=== PATIENT | female | born 1975 | race Caucasian/White ===

== ENCOUNTER 2024-04-16 10:47 | Outpatient (AMB) | payer MEDICARE, MEDICAID, SELFPAY ==
--- NOTE | 2024-04-16 10:51 | A.OFFVIS_ITS ---
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 Accompanied by: Self / Same As Patient Allergies amoxicillin [From Augmentin] Allergy (Unknown, Verified 04/16/24 11:06) Vomiting cariprazine [From Vraylar] Allergy (Unknown, Verified 04/16/24 11:06) Dizziness clavulanic acid [From Augmentin] Allergy (Unknown, Verified 04/16/24 11:06) Vomiting doxycycline Allergy (Unknown, Verified 04/16/24 11:06) Vomiting duloxetine Allergy (Unknown, Verified 04/16/24 11:06) suicidal ideation erythromycin base [From Ilotycin] Allergy (Unknown, Verified 04/16/24 11:06) Dizziness etodolac Allergy (Unknown, Verified 04/16/24 11:06) Headache Sulfa (Sulfonamide Antibiotics) Allergy (Unknown, Verified 04/16/24 11:06) TONGUE SWELLS sumatriptan [From Imitrex] Allergy (Unknown, Verified 04/16/24 11:06) neck pain tomato [Tomato] Allergy (Unknown, Verified 04/16/24 11:06) HIVES wheat Allergy (Unknown, Verified 04/16/24 11:06) CELIAC DISEASE HPI HPI Lumbar Spondylosis: Details: Patient is a 48 years old female past history of chronic neck and low back, lumbar degenerative disc disease, scoliosis, multiple joint pain, fibromyalgia, anxiety and depression, bipolar disorder, migraine headaches, presents today for initial evaluation of neck and back pain. Denies any recent trauma, injury, or falls. Patient was followed at [facility] and has completed physical and chiropractic therapy in September and received back injections in January with temporary pain relief that lasted about 1 month patient reports worsening pain after the injection and is hesitant towards interventional treatments. Patient reports back pain is the most troublesome pain generator. Back pain is axial without radiation into her lower extremities. Pain affects her daily activities and functioning, mobility, sleep, mood and social interactions. She does have chronic bilateral knee pain due to arthritis and was previously evaluated by Dr. Reinoso, Orthopedics in the past. Patient sees Dr. Velazquez for migraine headaches, treated with Tylenol #3 and topiramate. Denies any fever or chills, abdominal or groin pain, weakness, bladder or bowel dysfunction or saddle anesthesia. Patient is currently on permanent disability. She receives mental health therapy and counseling for Bipolar disorder, anxiety and depression. Patient drinks one cup of coffee and at times Dr. Pepper soda. Denies tobacco or alcohol use. Oswestry Low Back Disability Score=30 (severe disability) Location: Lower right back, widespread body pain, neck, bilateral knee pain Duration: Chronic pain for > 3 years Characteristics of symptom or complaint: Burning, aching, exhausting, spasming, aching, heavy Aggravating or associated factors: Walking, movement, sleeping, ADLs, home chores, cold/ice Relieving factors: Recliner, rest, Celebrex, Advil, gapapentin, Tylenol #3, heating pad Treatment: PT, chiropractic therapy, injection at [facility] Medical History (Updated 04/16/24 @ 21:56 by FRANK Logan) Lumbar spondylolysis Tinea pedis Bilateral knee pain Joint pain in both hands Fibromyalgia Hypertension Celiac disease Migraine Major depression, melancholic type Avulsion injury GERD (gastroesophageal reflux disease) Long-term current use of benzodiazepine Persistent insomnia Anxiety Bipolar 1 disorder Surgical History (Updated 04/16/24 @ 11:18 by FRANK Logan) H/O total hysterectomy (~2019) Review of Systems Const All systems reviewed & are unremarkable except as noted in HPI and below Physical Exam Vital Signs: Last Vital Signs Pulse 84 04/16/24 10:58 BP 141/85 H 04/16/24 10:58 Pulse Ox 98 04/16/24 10:58 Oxygen Delivery Method Room Air 04/16/24 10:58 BMI result Body Mass Index 44.8 General: Appears afebrile. No acute distress. Morbidly obese. Alert and oriented. Mood and affect appropriate. Follows and participates in conversation appropriately. Respiratory effort is unlabored. No cough. Able to transition from sit to stand unassisted. Ambulates with bilaterally normal heel strike and toe off. Neck Neck: Yes no lymphadenopathy, Yes supple, No anterior neck swelling, Yes no JVD and Yes prominent dorsocervical fat pad General: Yes no CVA tenderness Back/Spine/Pelvis Other: Patient is able to walk and stand on heels and tip toes with no difficulties demonstrating good motor tone. No limping. Can flex forward to 70-80 degrees and extend to 10-15 degrees before experiencing lumbar pain. Lumbar extension reproduces mild pain. Flexion is intact and reproduces moderate pain. Demonstrates 5/5 strength of quadriceps bilaterally as well as flexion/dorsiflexion of bilateral feet against resistance. 2+ pedal pulses bilaterally. Seated straight leg rise with dorsiflexion negative bilaterally. +2 right +1 left patellar and +1 achilles reflexes bilaterally. Facet loading test positive bilaterally. Daniel sign positive bilaterally, Alvaro?s, Pelvic compression and Stinchfield tests are negative bilaterally. No groin pain with I/E hip rotations. Valsalva maneuver negative. Multiple widespread TTPs 16/16 bilaterally, including upper and lower extremities.?? Back: no CVA tenderness Cervical Spine: cervical ROM normal, loss of normal cervical lordosis, cervical muscular tenderness and No Cervical spine tenderness Thoracic/Lumbar Spine: thoracic and lumbar spine normal to inspection, No Thoracic/lumbar spine scar(s), Lasegue's sign negative, straight leg raise negative bilaterally, pain with thoraco-lumbar ROM, paraspinal muscle tenderness, thoraco-lumbar ROM limited, No thoracic spinal tenderness and lumbar spinal tenderness at L4 and at L5 Pelvis: buttock tenderness bilaterally Sacroiliac joints: bilaterally tender to palpation Extrem General: Yes capillary refill normal, Yes no clubbing, cyanosis or edema and Yes no calf tenderness Results Reviewed Results Reviewed: No imaging results are available today. Assessment & Plan Assessment & Plan (1) Lumbar degenerative disc disease: Code(s): M51.36 - Other intervertebral disc degeneration, lumbar region Category: Medical (2) Chronic low back pain: Code(s): M54.50 - Low back pain, unspecified; G89.29 - Other chronic pain Category: Medical (3) Lumbosacral spondylosis: Code(s): M47.817 - Spondylosis without myelopathy or radiculopathy, lumbosacral region Category: Medical (4) Fibromyalgia: Code(s): M79.7 - Fibromyalgia Category: Medical Plan Discussed interventional treatments for axial low back pain, including diagnostic versus therapeutic injections, peripheral nerve stimulation and RFA procedures. Informational pamphlets provided to patient. Will request medical records from [facility] to review recent injection in January and most recent spine imaging. Tentatively plan for Bilateral Diagnostic L3-L4 DR L5 MBB with local and fluoroscopy. Expectations, risks and benefits were reviewed. Expectations, risks and benefits were reviewed. Patient encouraged daily physical activity, adequate hydration, weight optimization, good posture. Consider acupuncture and CBT therapy. All questions and concerns have been answered. Follow-up for old records/imaging review and sooner as needed. Coding Level of Care Code New Pt Level 4 (01371) Complex EM visit Add On G2211 Diagnoses Lumbar degenerative disc disease M51.36 Chronic low back pain M54.50; G89.29 Lumbosacral spondylosis M47.817 Fibromyalgia M79.7
[2024-04-16 10:58] VITALS: BP 141/85; PULSE 84; O2SAT 98; BMI 44.8
== END 2024-04-16 11:34 | disposition home or self-care (01) ==
PROVIDERS: PCP Family Medicine; Visit Provider Nurse Practitioner Family
DX: M51.36 Other intervertebral disc degeneration, lumbar region (principal); M54.50 Low back pain, unspecified; G89.29 Other chronic pain; M47.817 Spondylosis without myelopathy or radiculopathy, lumbosacral region; M79.7 Fibromyalgia
CPT/HCPCS: 99204; G2211

== ENCOUNTER → 2024-04-16 10:47 | Outpatient (BNVA) | payer MEDICARE, MEDICAID, SELFPAY | PROVIDERS: PCP Family Medicine; Visit Provider Nurse Practitioner Family | DX: M51.36 Other intervertebral disc degeneration, lumbar region (principal); M54.50 Low back pain, unspecified; G89.29 Other chronic pain; M47.817 Spondylosis without myelopathy or radiculopathy, lumbosacral region; M79.7 Fibromyalgia | CPT/HCPCS: 99202 ==

== ENCOUNTER 2024-05-25 10:48 | Outpatient (AMB) | payer MEDICARE, MEDICAID, SELFPAY ==
--- NOTE | 2024-05-25 10:49 | MHC.OFFVIS ---
Vital Signs 05/25/24 10:54 Height 5 ft 5 in Weight 267 lb BMI 44.4 BP 144/98 H Blood Pressure Location Lt radial Position Sitting Respiration 16 Pulse 80 Pulse Source Pulse Oximeter Pulse Oximetry (%) 98 Oxygen Delivery Method Room Air Intake Visit Reasons: Medical record review Intake Note: Patient comes in for follow up. Reports pain 7-8. Allergies amoxicillin [From Augmentin] Allergy (Unknown, Verified 05/25/24 10:54) Vomiting cariprazine [From Vraylar] Allergy (Unknown, Verified 05/25/24 10:54) Dizziness clavulanic acid [From Augmentin] Allergy (Unknown, Verified 05/25/24 10:54) Vomiting doxycycline Allergy (Unknown, Verified 05/25/24 10:54) Vomiting duloxetine Allergy (Unknown, Verified 05/25/24 10:54) suicidal ideation erythromycin base [From Ilotycin] Allergy (Unknown, Verified 05/25/24 10:54) Dizziness etodolac Allergy (Unknown, Verified 05/25/24 10:54) Headache Sulfa (Sulfonamide Antibiotics) Allergy (Unknown, Verified 05/25/24 10:54) TONGUE SWELLS sumatriptan [From Imitrex] Allergy (Unknown, Verified 05/25/24 10:54) neck pain tomato [Tomato] Allergy (Unknown, Verified 05/25/24 10:54) HIVES wheat Allergy (Unknown, Verified 05/25/24 10:54) CELIAC DISEASE HPI Comments Details: Patient presents today for follow-up for persistent chronic low back pain with left-sided radiculopathy. We have received old records from [facility] which were reviewed for previous injections, most recent L5-S1 NAIMA this summer by Dr. Sandoval. Patient reports this injection provided her only 3 weeks of pain relief and she was offered to repeat same injection but declined as she is interested in a longer lasting results. We have requested imaging from [facility] and [facility] for previous x-rays and MRI spine imaging. Unfortunately we have not received those results as of today and will resubmit request. We discussed interventional treatments to address her chronic back symptoms including therapeutic injections and neuromodulation with spinal cord stimulation. Patient is interested in Neurosurgical evaluation as next steps. Denies any fever or chills, abdominal or groin pain, bladder or bowel dysfunction or saddle anesthesia. PRIOR: Patient is a 48 years old female past history of chronic neck and low back, lumbar degenerative disc disease, scoliosis, multiple joint pain, fibromyalgia, anxiety and depression, bipolar disorder, migraine headaches, presents today for initial evaluation of neck and back pain. Denies any recent trauma, injury, or falls. Patient was followed at [facility] and has completed physical and chiropractic therapy in September and received back injections in January with temporary pain relief that lasted about 1 month patient reports worsening pain after the injection and is hesitant towards interventional treatments. Patient reports back pain is the most troublesome pain generator. Back pain is axial without radiation into her lower extremities. Pain affects her daily activities and functioning, mobility, sleep, mood and social interactions. She does have chronic bilateral knee pain due to arthritis and was previously evaluated by Dr. Reinoso, Orthopedics in the past. Patient sees Dr. Velazquez for migraine headaches, treated with Tylenol #3 and topiramate. Denies any fever or chills, abdominal or groin pain, weakness, bladder or bowel dysfunction or saddle anesthesia. Patient is currently on permanent disability. She receives mental health therapy and counseling for Bipolar disorder, anxiety and depression. Patient drinks one cup of coffee and at times Pepper soda. Denies tobacco or alcohol use. Oswestry Low Back Disability Score=30 (severe disability) Location: Lower right back, widespread body pain, neck, bilateral knee pain Duration: Chronic pain for > 3 years Characteristics of symptom or complaint: Burning, aching, exhausting, spasming, aching, heavy Aggravating or associated factors: Walking, movement, sleeping, ADLs, home chores, cold/ice Relieving factors: Recliner, rest, Celebrex, Advil, gapapentin, Tylenol #3, heating pad Treatment: PT, chiropractic therapy, injection at [facility]ENDUM [facility] notes review: L5-S1 interlaminar NAIMA in November [address] Sandoval provided patient 70% improvement of her pain symptoms. [facility] Medical History (Updated 05/25/24 @ 11:13 by FRANK Logan) Lumbar spondylolysis Tinea pedis Bilateral knee pain Joint pain in both hands Fibromyalgia Hypertension Celiac disease Migraine Major depression, melancholic type Avulsion injury GERD (gastroesophageal reflux disease) Long-term current use of benzodiazepine Persistent insomnia Anxiety Bipolar 1 disorder Surgical History (Updated 04/16/24 @ 11:18 by FRANK Logan) H/O total hysterectomy (~2019) Review of Systems Const All systems reviewed & are unremarkable except as noted in HPI and below Physical Exam Vital Signs: Last Vital Signs Pulse 80 05/25/24 10:54 Resp 16 05/25/24 10:54 BP 144/98 H 05/25/24 10:54 Pulse Ox 98 05/25/24 10:54 Oxygen Delivery Method Room Air 05/25/24 10:54 BMI result Body Mass Index 44.4 Neck Neck: Yes no lymphadenopathy, Yes supple, No anterior neck swelling, Yes no JVD and Yes prominent dorsocervical fat pad General: Yes no CVA tenderness Back/Spine/Pelvis Other: Patient is able to walk and stand on heels and tip toes with no difficulties demonstrating good motor tone. No limping. Can flex forward to 70-80 degrees and extend to 10-15 degrees before experiencing lumbar pain. Lumbar extension reproduces mild to moderate pain. Flexion forward or bending reproduces moderate pain. Demonstrates 5/5 strength of quadriceps bilaterally as well as flexion/dorsiflexion of bilateral feet against resistance. 2+ pedal pulses bilaterally. Seated straight leg rise with dorsiflexion negative bilaterally. +2 right +1 left patellar and +1 achilles reflexes bilaterally. Facet loading test positive bilaterally. Daniel sign positive bilaterally, Alvaro?s, Pelvic compression and Stinchfield tests are negative bilaterally. No groin pain with I/E hip rotations. Valsalva maneuver negative. Multiple widespread TTPs 16/16 bilaterally, including torso, upper and lower extremities.?? Back: no CVA tenderness Cervical Spine: cervical ROM normal, loss of normal cervical lordosis, cervical muscular tenderness and No Cervical spine tenderness Thoracic/Lumbar Spine: thoracic and lumbar spine normal to inspection, No Thoracic/lumbar spine scar(s), Lasegue's sign negative, straight leg raise negative bilaterally, pain with thoraco-lumbar ROM, paraspinal muscle tenderness, thoraco-lumbar ROM limited, No thoracic spinal tenderness and lumbar spinal tenderness at L4 and at L5 Pelvis: buttock tenderness bilaterally Sacroiliac joints: bilaterally tender to palpation Extrem General: Yes capillary refill normal, Yes no clubbing, cyanosis or edema and Yes no calf tenderness Results Reviewed Results Reviewed: No imaging results are available today. Assessment & Plan Assessment & Plan (1) Lumbar radiculopathy: Code(s): M54.16 - Radiculopathy, lumbar region Category: Medical (2) Lumbar degenerative disc disease: Code(s): M51.36 - Other intervertebral disc degeneration, lumbar region Category: Medical (3) Chronic low back pain: Code(s): M54.50 - Low back pain, unspecified; G89.29 - Other chronic pain Category: Medical (4) Lumbosacral spondylosis: Code(s): M47.817 - Spondylosis without myelopathy or radiculopathy, lumbosacral region Category: Medical (5) Fibromyalgia: Code(s): M79.7 - Fibromyalgia Category: Medical Plan Discussed interventional treatments for axial low back pain, including diagnostic versus therapeutic injections, peripheral nerve stimulation and RFA procedures and SCS trial vs implant for a longer term back pain relief. [facility] old records were scanned into patient's chart and reviewed for previous injections, most recent L5-S1 NAIMA this summer with 3 weeks of pain relief. Pending imaging reports from [facility] and [facility], request re-submitted again. Patient is interested in Neurosurgical evaluation to address her radicular symptoms. Previously discussed Bilateral Diagnostic L3-L4 DR L5 MBB for axial low back pain. Patient will notify our office if she is interested to proceed with nerve blocks for potential Sprint PNS trial vs RFA. Patient encouraged daily physical activity, adequate hydration, weight optimization, good posture. Consider acupuncture and CBT therapy. All questions and concerns have been answered. Follow-up for old records/imaging review and sooner as needed. Orders: Referrals Neuro Spine Referral M51.36 - Other intervertebral disc degeneration, lumbar region, M54.16 - Radiculopathy, lumbar region Coding Level of Care Code Est Pt Level 3 (67862) Complex EM visit Add On G2211 Diagnoses Lumbar radiculopathy M54.16 Lumbar degenerative disc disease M51.36 Chronic low back pain M54.50; G89.29 Lumbosacral spondylosis M47.817 Fibromyalgia M79.7
[2024-05-25 10:54] VITALS: BP 144/98; PULSE 80; RESP 16; O2SAT 98; BMI 44.4
== END 2024-05-25 11:23 | disposition home or self-care (01) ==
LOC: HO.PMC 10:49
PROVIDERS: PCP Family Medicine; Visit Provider Nurse Practitioner Family
DX: M54.16 Radiculopathy, lumbar region (principal); M51.369 Other intervertebral disc degeneration, lumbar region without mention of lumbar back pain or lower extremity pain; M54.50 Low back pain, unspecified; G89.29 Other chronic pain; M47.817 Spondylosis without myelopathy or radiculopathy, lumbosacral region; M79.7 Fibromyalgia
CPT/HCPCS: 99213; G2211

== ENCOUNTER → 2024-05-25 10:48 | Outpatient (BNVA) | payer MEDICARE, MEDICAID, SELFPAY | PROVIDERS: PCP Family Medicine; Visit Provider Nurse Practitioner Family | DX: M54.16 Radiculopathy, lumbar region (principal); M51.360 Other intervertebral disc degeneration, lumbar region with discogenic back pain only; M47.817 Spondylosis without myelopathy or radiculopathy, lumbosacral region; M79.7 Fibromyalgia; G89.29 Other chronic pain | CPT/HCPCS: 99212 ==

== ENCOUNTER 2024-06-11 09:50 | Outpatient (AMB) | payer MEDICARE, MEDICAID, SELFPAY ==
--- NOTE | 2024-06-11 09:53 | HO.SPINEOV ---
Intake Visit Reasons: Low back pain Intake Note: Ms. Randolph is here today c/o low back pain. 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 Required: No Allergies amoxicillin [From Augmentin] Allergy (Unknown, Verified 05/25/24 10:54) Vomiting cariprazine [From Vraylar] Allergy (Unknown, Verified 05/25/24 10:54) Dizziness clavulanic acid [From Augmentin] Allergy (Unknown, Verified 05/25/24 10:54) Vomiting doxycycline Allergy (Unknown, Verified 05/25/24 10:54) Vomiting duloxetine Allergy (Unknown, Verified 05/25/24 10:54) suicidal ideation erythromycin base [From Ilotycin] Allergy (Unknown, Verified 05/25/24 10:54) Dizziness etodolac Allergy (Unknown, Verified 05/25/24 10:54) Headache Sulfa (Sulfonamide Antibiotics) Allergy (Unknown, Verified 05/25/24 10:54) TONGUE SWELLS sumatriptan [From Imitrex] Allergy (Unknown, Verified 05/25/24 10:54) neck pain tomato [Tomato] Allergy (Unknown, Verified 05/25/24 10:54) HIVES wheat Allergy (Unknown, Verified 05/25/24 10:54) CELIAC DISEASE Assessment & Plan Assessment & Plan (1) Chronic low back pain: Code(s): M54.50 - Low back pain, unspecified; G89.29 - Other chronic pain Category: Medical Plan Dear Marni Thank you for referring Mrs Randolph to our office today. She is a 48-year-old female with a previous history of scoliosis when she was a child, had to be put in a brace preventatively, has had left-sided back pain for many years, over the last 3 years she has had more persistent left-sided low back pain which will radiate down into her leg and calf. She has undergone numerous rounds of conservative treatment including physical therapy, chiropractic, cortisone injections. She did have what sounds like a L5-S1 TFE done at [facility] earlier this year and it did help for 2-3 weeks. She also takes gabapentin help with the pain. The back pain and leg pain are part of a global pain syndrome that she has which starts in the low back but radiates all over the whole body. Her pain is associated with activity but is also present at rest. At nighttime she will sleep for few hours and have to get up and go get to a recliner. She has tried [id number] pain medications as well without any relief. She is frustrated with the quality of life. She was sent today to see us for evaluation to see if there is any surgical solution to her pain and discomfort. PMH: She has a history of bipolar disorder, anxiety, fibromyalgia, hypertension, migraines, depression, GERD Social hx: She does not smoke, drink use any recreational drugs Medications: Losartan, Celebrex, Klonopin, Seroquel, gabapentin, Lamictal, cetirizine, Topamax Allergies: Please see the [employer] list Physical exam: She is awake alert oriented no acute distress, strength and reflexes are normal. Gait is normal. JUAN testing negative. Positive finger Daniel test. Imaging review: There is a lumbar MRI done at [facility]. There is 1 from 2022 and 1 from 2014. There is also CT of the abdomen. The lumbar MRIs show that she has very modest degenerative disc disease with no evidence of nerve compression. There is slightly more degeneration of the endplate at L5-S1 on the left. The CT of the abdomen does show that there is more breakdown of the disc on the left side at L5-S1 with some levoscoliosis. Again, no nerve compression. There is not much change in the MRIs from [id number]. Impression: 48-year-old female presents for evaluation of chronic left-sided low back pain which radiates down into her leg and outer calf. She does have some breakdown of the disc on the left-sided L5-S1 but it is not severe, there is no evidence of nerve impingement. She did get good relief of the pain from an L5-S1 injection however, so there may be some kind of inflammation of the nerve in this region. Another possibility is that this could be the SI joint as these are known to cause radicular type symptoms as well. She had positive finger Daniel test, but negative JUAN testing. Right now I do not think I have a surgical solution for her. I am going to get standing x-rays with scoliosis series just to make sure that we are not missing something in the upright position as she does get a lot of her pain coming with activity. Outside of that, if those do not look like there is a severe change in the dynamics of her spine at a vertical position, you could consider an SI joint injection as an option. Thank you for allowing us to care for your patient. The total time spent with this visit with this patient was 45 minutes reviewing history, physical exam, lumbar imaging review, and implementation of treatment plan or further diagnostic testing Vladislav Ramirez MD,PhD [facility] Orders: Orders XR lumbar spine 4V min Today G89.29 - Other chronic pain, M54.50 - Low back pain, unspecified XR scoliosis survey Today G89.29 - Other chronic pain, M54.50 - Low back pain, unspecified Coding Level of Care Code New Pt Level 4 (78787) Diagnoses Chronic low back pain M54.50; G89.29
== END 2024-06-11 10:38 | disposition home or self-care (01) ==
PROVIDERS: PCP Family Medicine; Referring Provider Nurse Practitioner Family; Visit Provider Physician Assistant
DX: M54.50 Low back pain, unspecified (principal); G89.29 Other chronic pain
CPT/HCPCS: 99204

== ENCOUNTER 2024-06-11 09:50 | Outpatient (REF) | payer MEDICARE, MEDICAID, SELFPAY | END 2024-06-11 09:51 | disposition home or self-care (01) | LOC: HO.XRAY 09:50 | PROVIDERS: PCP Family Medicine; Visit Provider Physician Assistant | DX: M54.50 Low back pain, unspecified (principal); G89.29 Other chronic pain | CPT/HCPCS: 72082; 72110; 99202 ==

== ENCOUNTER 2024-09-21 10:52 | Outpatient (REF) | payer MEDICARE, MEDICAID, SELFPAY ==
--- NOTE | ~2024-09-21 | XR_ITS ---
EXAMINATION: XR CERVICAL SPINE 4-5 VIEWS HISTORY: M47.812 - Spondylosis without myelopathy or radiculopathy, cervical region COMPARISON: There are no prior studies for comparison. FINDINGS: AP, lateral, bilateral oblique, and open-mouth odontoid views of the cervical spine are submitted. Osseous mineralization is normal. Seven cervical vertebral bodies are identified maintaining normal height and alignment without evidence of fracture or subluxation. The intervertebral disc spaces are preserved. The neural foramina patent bilaterally. The odontoid and lateral masses of C1 are intact. There is no prevertebral soft tissue swelling. A calcification in the right neck may be related to the internal carotid artery. XR/XR cervical spine 4V IMPRESSION: Unremarkable examination of the cervical spine. Electronically signed by: Kenrick Crawford MD 09/24/2024 10:12 AM OG BRASHER
== END 2024-09-21 10:53 | disposition home or self-care (01) ==
LOC: HO.XRAY 10:52
PROVIDERS: PCP Family Medicine; Referring Provider Psychiatry & Neurology Neurology; Visit Provider Nurse Practitioner Family
DX: M79.7 Fibromyalgia (principal); M47.812 Spondylosis without myelopathy or radiculopathy, cervical region; G44.86 Cervicogenic headache; G43.E09 Chronic migraine with aura, not intractable, without status migrainosus; M47.012 Anterior spinal artery compression syndromes, cervical region; E66.01 Morbid (severe) obesity due to excess calories; Z68.41 Body mass index [BMI] 40.0-44.9, adult
CPT/HCPCS: 72050; 99212

== ENCOUNTER 2024-09-21 10:52 | Outpatient (AMB) | payer MEDICARE, MEDICAID, SELFPAY ==
--- NOTE | 2024-09-21 10:56 | MHC.OFFVIS ---
Vital Signs 09/21/24 11:00 Height 5 ft 5 in Weight 267 lb BMI 44.4 BP 164/103 H Blood Pressure Location Rt brachial Position Sitting Pulse 91 Pulse Source Pulse Oximeter Pulse Oximetry (%) 97 Oxygen Delivery Method Room Air Intake Visit Reasons: Neck pain Equipment Maintenance Supervisor Required: No Accompanied by: Self / Same As Patient Allergies amoxicillin [From Augmentin] Allergy (Unknown, Verified 09/21/24 11:01) Vomiting cariprazine [From Vraylar] Allergy (Unknown, Verified 09/21/24 11:01) Dizziness clavulanic acid [From Augmentin] Allergy (Unknown, Verified 09/21/24 11:01) Vomiting doxycycline Allergy (Unknown, Verified 09/21/24 11:01) Vomiting duloxetine Allergy (Unknown, Verified 09/21/24 11:01) suicidal ideation erythromycin base [From Ilotycin] Allergy (Unknown, Verified 09/21/24 11:01) Dizziness etodolac Allergy (Unknown, Verified 09/21/24 11:01) Headache Sulfa (Sulfonamide Antibiotics) Allergy (Unknown, Verified 09/21/24 11:01) TONGUE SWELLS sumatriptan [From Imitrex] Allergy (Unknown, Verified 09/21/24 11:01) neck pain tomato [Tomato] Allergy (Unknown, Verified 09/21/24 11:01) HIVES wheat Allergy (Unknown, Verified 09/21/24 11:01) CELIAC DISEASE HPI Comments Details: Patient presents today for follow up for acute on chronic neck pain. She was last seen in our office last year for back pain and was sent to [facility] for lumbar radiculopathy. She reports her left leg pain improved after cortisone injection and back pain has been minimal since then. Denies any recent trauma, injury or falls. Reports chronic migraine headaches since age 13 and worsening daily cervicogenic headaches. Reports current high levels of stress due to her daughter being in crisis from school bullying. Patient is trying to stay physically active and optimize her weight. Patient reports headaches and neck pain are most severe by the end of the day and upon waking up. She has to take lots of medications to block her headaches but continues to frequently wake up during the night with horrible headaches. Pain limits her functioning, driving and causes difficulty concentrating. She drives car with moderate pain and has restricted side movements due to pain. Patient avoids reading due to severe neck pain or prolonged flexion which at frequently will cause nausea episodes. Patient reports neck pain will radiate into her left hand with left 5th digit numbness and weakness. Patient completed cervical spine MRI at [facility] per her Neurologist last summer which showed incidental note of intraforaminal course of the vertebral arteries bilaterally at C3-C4 and on the left at C6-C7. These potentially could cause functional compression of the nerve roots. No significant spinal canal or neuroforaminal stenosis. She also underwent MRI of the brain and head, these reports are not available for review today. She states her Neurologist told her there is nothing else they offer her for chronic headaches. Patient denies any Vascular evaluation. She completed physical therapy in the past with no improvement in her symptoms but is willing to repeat another course of PT. Denies any fever or chills, dizziness, shortness of breaths, chest pain, foot drop, gait disturbance, bladder or bowel dysfunction or saddle anesthesia. Oswestry Neck Disability Index Score=27 (severe disability) PRIOR 05/25/24: Patient presents today for follow-up for persistent chronic low back pain with left-sided radiculopathy. We have received old records from [facility] which were reviewed for previous injections, most recent L5-S1 NAIMA this summer by Dr. Sandoval. Patient reports this injection provided her only 3 weeks of pain relief and she was offered to repeat same injection but declined as she is interested in a longer lasting results. We have requested imaging from [facility] and [facility] for previous x-rays and MRI spine imaging. Unfortunately we have not received those results as of today and will resubmit request. We discussed interventional treatments to address her chronic back symptoms including therapeutic injections and neuromodulation with spinal cord stimulation. Patient is interested in Neurosurgical evaluation as next steps. Denies any fever or chills, abdominal or groin pain, bladder or bowel dysfunction or saddle anesthesia. PRIOR: Patient is a 48 years old female past history of chronic neck and low back, lumbar degenerative disc disease, scoliosis, multiple joint pain, fibromyalgia, anxiety and depression, bipolar disorder, migraine headaches, presents today for initial evaluation of neck and back pain. Denies any recent trauma, injury, or falls. Patient was followed at [facility] and has completed physical and chiropractic therapy in September and received back injections in January with temporary pain relief that lasted about 1 month patient reports worsening pain after the injection and is hesitant towards interventional treatments. Patient reports back pain is the most troublesome pain generator. Back pain is axial without radiation into her lower extremities. Pain affects her daily activities and functioning, mobility, sleep, mood and social interactions. She does have chronic bilateral knee pain due to arthritis and was previously evaluated by Dr. Reinoso, Orthopedics in the past. Patient sees Dr. Velazquez for migraine headaches, treated with Tylenol #3 and topiramate. Denies any fever or chills, abdominal or groin pain, weakness, bladder or bowel dysfunction or saddle anesthesia. Patient is currently on permanent disability. She receives mental health therapy and counseling for Bipolar disorder, anxiety and depression. Patient drinks one cup of coffee and at times Pepper soda. Denies tobacco or alcohol use. Oswestry Low Back Disability Score=30 (severe disability) Location: Lower right back, widespread body pain, neck, bilateral knee pain Duration: Chronic pain for > 3 years Characteristics of symptom or complaint: Burning, aching, exhausting, spasming, aching, heavy Aggravating or associated factors: Walking, movement, sleeping, ADLs, home chores, cold/ice Relieving factors: Recliner, rest, Celebrex, Advil, gapapentin, Tylenol #3, heating pad Treatment: PT, chiropractic therapy, injection at [facility] notes review: L5-S1 interlaminar NAIMA in November [address] Sandoval provided patient 70% improvement of her pain symptoms. [facility] Medical History (Updated 09/21/24 @ 11:32 by FRANK Logan) Chronic migraine with aura Lumbar spondylolysis Tinea pedis Bilateral knee pain Joint pain in both hands Fibromyalgia Hypertension Celiac disease Migraine Major depression, melancholic type Avulsion injury GERD (gastroesophageal reflux disease) Long-term current use of benzodiazepine Persistent insomnia Anxiety Bipolar 1 disorder Surgical History (Updated 04/16/24 @ 11:18 by FRANK Logan) H/O total hysterectomy (~2018) Review of Systems Const All systems reviewed & are unremarkable except as noted in HPI and below Physical Exam General: Appears afebrile. Alert and oriented. Mood and affect appropriate. Follows and participates in conversation appropriately. Respiratory effort is unlabored. No cough. Able to transition from sit to stand unassisted. Ambulates with bilaterally normal heel strike and toe off. Multiple widespread TTPs 16/16 bilaterally, including upper and lower extremities.?? Neck Other: Patient with decreased cervical ROM in all planes/especially with lateral rotation. Reports increased pain with cervical flexion worse than flexion. Spurling compression test is negative. Pain is unchanged by Spurling maneuver with retraction. Elvey's tension test positive on the left, with radiation of pain from neck to hand. Lhermitte's test was negative. DTR intact, +2 and symmetrical. Patient demonstrated 5/5 motor strength of bilateral upper extremities. 2 + radial pulses. Significant tightness throughout upper trapezius muscles. No clonus. Neck: Yes no lymphadenopathy, Yes supple, No anterior neck swelling, Yes no JVD and Yes prominent dorsocervical fat pad Back/Spine/Pelvis Cervical Spine: cervical ROM normal, loss of normal cervical lordosis, cervical muscular tenderness and No Cervical spine tenderness Thoracic/Lumbar Spine: thoracic and lumbar spine normal to inspection, No Thoracic/lumbar spine scar(s), thoraco-lumbar ROM limited, No thoracic spinal tenderness and No lumbar spinal tenderness Sacroiliac joints: bilaterally tender to palpation Results Reviewed Results Reviewed: Assessment & Plan Assessment & Plan (1) Fibromyalgia: Code(s): M79.7 - Fibromyalgia Category: Medical (2) Cervical spondylosis: Code(s): M47.812 - Spondylosis without myelopathy or radiculopathy, cervical region Category: Medical (3) Cervicogenic headache: Code(s): G44.86 - Cervicogenic headache Category: Medical (4) Chronic migraine with aura: Code(s): G43.E09 - Chronic migraine with aura, not intractable, without status migrainosus Category: Medical (5) 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 We do not have imaging to review. Will obtain flexion and extension views of her cervical spine and physical therapy prior to interventional treatments. Patient is also will be referred to [facility] for further evaluation of cervical spine arteries compression syndrome. Carotid US ordered as well. Encouraged daily physical activity, good posture, adequate hydration, weight optimization, sleep hygiene and avoid known migraine triggers. All questions and concerns have been answered and patient agreed with the treatment plan. Follow-up for x-ray results/after physical therapy and sooner as needed. Orders: Orders US carotid duplex BI Today G43.E09 - Chronic migraine with aura, not intractable, without status migrainosus, G44.86 - Cervicogenic headache, M47.012 - Anterior spinal artery compression syndromes, cervical region, M47.812 - Spondylosis without myelopathy or radiculopathy, cervical region XR cervical spine 4V Today G44.86 - Cervicogenic headache, M47.012 - Anterior spinal artery compression syndromes, cervical region, M47.812 - Spondylosis without myelopathy or radiculopathy, cervical region PT Evaluation and Treatment Today G44.86 - Cervicogenic headache, M47.812 - Spondylosis without myelopathy or radiculopathy, cervical region, M79.7 - Fibromyalgia Referrals Vascular Surgery Referral E66.01 - Morbid (severe) obesity due to excess calories, G43.E09 - Chronic migraine with aura, not intractable, without status migrainosus, G44.86 - Cervicogenic headache, M47.012 - Anterior spinal artery compression syndromes, cervical region, Z68.41 - Body mass index [BMI] 40.0-44.9, adult Coding Level of Care Code Est Pt Level 4 (32486) Complex EM visit Add On G2211 Diagnoses Fibromyalgia M79.7 Cervical spondylosis M47.812 Cervicogenic headache G44.86 Chronic migraine with aura G43.E09 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
[2024-09-21 11:00] VITALS: BP 164/103; PULSE 91; O2SAT 97; BMI 44.4
== END 2024-09-21 11:25 | disposition home or self-care (01) ==
PROVIDERS: PCP Family Medicine; Referring Provider Psychiatry & Neurology Neurology; Visit Provider Nurse Practitioner Family
DX: M79.7 Fibromyalgia (principal); M47.812 Spondylosis without myelopathy or radiculopathy, cervical region; G44.86 Cervicogenic headache; G43.E09 Chronic migraine with aura, not intractable, without status migrainosus; M47.012 Anterior spinal artery compression syndromes, cervical region; E66.01 Morbid (severe) obesity due to excess calories; Z68.41 Body mass index [BMI] 40.0-44.9, adult
CPT/HCPCS: 99214; G2211

== ENCOUNTER → 2024-09-21 11:39 | Outpatient (BNV) | payer MEDICARE, MEDICAID, SELFPAY | PROVIDERS: PCP Family Medicine; Referring Provider Psychiatry & Neurology Neurology; Visit Provider Radiology Diagnostic Radiology | DX: M47.812 Spondylosis without myelopathy or radiculopathy, cervical region (principal) | CPT/HCPCS: 72050 ==

== ENCOUNTER 2025-05-10 11:33 | Outpatient (AMB) | payer MEDICARE, MEDICAID, SELFPAY ==
--- NOTE | 2025-05-10 11:58 | A.SPINEOV_ITS ---
Intake Visit Reasons: Back pain Intake Note: Ms. Randolph is here today cc back pain. 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 Required: No Allergies amoxicillin (From Augmentin) Allergy (Unknown, Verified 09/21/24 11:01) Vomiting cariprazine (From Vraylar) Allergy (Unknown, Verified 09/21/24 11:01) Dizziness clavulanic acid (From Augmentin) Allergy (Unknown, Verified 09/21/24 11:01) Vomiting doxycycline Allergy (Unknown, Verified 09/21/24 11:01) Vomiting duloxetine Allergy (Unknown, Verified 09/21/24 11:01) suicidal ideation erythromycin base (From Ilotycin) Allergy (Unknown, Verified 09/21/24 11:01) Dizziness etodolac Allergy (Unknown, Verified 09/21/24 11:01) Headache Sulfa (Sulfonamide Antibiotics) Allergy (Unknown, Verified 09/21/24 11:01) TONGUE SWELLS sumatriptan (From Imitrex) Allergy (Unknown, Verified 09/21/24 11:01) neck pain tomato (Tomato) Allergy (Unknown, Verified 09/21/24 11:01) HIVES wheat Allergy (Unknown, Verified 09/21/24 11:01) CELIAC DISEASE Assessment & Plan Assessment & Plan (1) Chronic low back pain: Code(s): M54.50 - Low back pain, unspecified; G89.29 - Other chronic pain Category: Medical Plan Mrs Randolph is here in follow up today. Please refer to my last note for the specifics of the problem. Her back pain continues and is getting worse. She still has the left leg pain as well. Her CT done at [facility] did show she has as we suspected bilateral pars defects and a spondylolisthesis L5-S1. This might explain her back and left leg pain. I will show her films to dr Ramirez but typical treatment for this would be anterior lumbar interbody fusion to stabalize the segment. She obviously has the issues with ths scoliosis up higher in the spine but i don't think these are symptomatic at this time. We did briefly discuss the procedure and bc of some limitations with driving after surgery she is thinking a better time to do the surgery would be next summer. Once i review everythign with Dr Ramirez, i will get back to her with a final plan and we can f/u with her next spring to outline a surgical date. Total amount of time spent in this visit was 20 minutes in discussion of symptoms, CT and MRI imaging results and subsequent plan of care Vladislav Ramirez MD,PhD [facility] Coding Level of Care Code Est Pt Level 3 (89547) Diagnoses Chronic low back pain M54.50; G89.29
--- OUTSIDE RECORDS SUMMARY | 2025-05-10 14:19 | XMS_ITS | Encounter Summary ---
Author Organization [facility] Address [address] [address] Phone Care Team Providers Care Legal Director Name Role Phone Bipin Colorado MD Primary Care Provider [phone] Junie Zabala MD Primary Care Provider [phone] Reason for Referral * MRI/CAT Scan - Closed Specialty Diagnoses / Procedures Referred By Igor sauer Referred To Contact Radiology Diagnoses Low back pain, unspecified back pain laterality, unspecified chronicity, unspecified whether sciatica present Left leg pain Procedures MRI Lumbar Spine Ramón Velazquez MD [address] [place] [address], [address] [place] [id number] Phone: tel: fax: [email or web address] Referral ID Status Reason Start Date Expiration Date Visits Re quested Visits Authorized [id number] Closed 03/09/2023 1 1 Encounter Details Date Type Department Care Team (Latest Contact Info) Description 03/09/2023 Transcribe Orders Virtual Department [address] [place] [address] Ramón Velazquez MD [address] [place] [address], [address] [place], [place] [id number] [email or web address] Low back pain, unspecified back pain laterality, unspecified chronicity, unspecified whether sciatica present (Primary Dx); Left leg pain Social History Tobacco Use Types Packs/Day Years Used Date Smoking Tobacco: Former Smokeless Tobacco: Never Comments:Smoked for 1 year i n college 20 years ago Alcohol Use Standard Drinks/Week Comments No 0 (1 standard drink = 0.6 oz pur e alcohol) Education Answer Date Recorded Are you interested in more education? Not on syed e 11/19/2022 Are you concerned about learning? Not on file 11/19/2022 No 11/19/2022 No 11/19/2022 Digital Access Answer Date Recorded No 12/17/2022 No 12/17/2022 Reliable internet access at home? Not on file 12/17/2022 Device with a working camera? 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 This may reflect an axial pain generator. Mild left neuroforaminal stenosis at L5-S1. Narrative 04/17/2023 11:58 PM EDT MRI LUMBAR SPINE (NEURO) WITHOUT CONTRAST TECHNIQUE: MRI LUMBAR SPINE (NEURO) WITHOUT CONTRAST COMPARISON: CT ABDOMEN/PELVIS WITH CONTRAST FINDINGS: ALIGNMENT: Levoconvex curvature centered at L3. No spondylolisthesis. MARROW: No compression fracture or marrow replacing lesion. DISCS: Disc desiccation at L5-S1. CONUS: Normal appearance and terminates at T12-L1. PARASPINAL SOFT TISSUES: Mild to moderate posterior paraspinal muscle atrophy. 11 mm S1-S2 Tarlov cysts. FINDINGS BY LEVEL: T12-L1:Facet arthropathy. No spinal canal or neuroforaminal stenosis. L1-2: No spinal canal or neuroforaminal stenosis. L2-3: No spinal canal or neuroforaminal stenosis. L3-4: Facet arthropathy. No spinal canal or neuroforaminal stenosis. L4-5: Facet arthropathy and thickening of ligamentum flavum. No spinal canal or neuroforaminal stenosis. L5-S1: Diffuse disc bulge, facet arthropathy, and thickening of ligamentum flavum. No spinal canal stenosis. Mild left neuroforaminal stenosis. Procedure Note Edmond Avila MD - 04/18/2023 MRI LUMBAR SPINE (NEURO) WITHOUT CONTRAST TECHNIQUE: MRI LUMBAR SPINE (NEURO) WITHOUT CONTRAST COMPARISON: CT ABDOMEN/PELVIS WITH CONTRAST FINDINGS: ALIGNMENT: Levoconvex curvature centered at L3. No spondylolisthesis. MARROW: No compression fracture or marrow replacing lesion. DISCS: Disc desiccation at L5-S1. CONUS: Normal appearance and terminates at T12-L1. PARASPINAL SOFT TISSUES: Mild to moderate posterior paraspinal muscleatrophy. 11 mm S1-S2 Tarlov cysts. FINDINGS BY LEVEL: T12-L1:Facet arthropathy. No spinal canal or neuroforaminal stenosis. L1-2: No spinal canal or neuroforaminal stenosis. L2-3: No spinal canal or neuroforaminal stenosis. L3-4: Facet arthropathy. No spinal canal or neuroforaminal stenosis. L4-5: Facet arthropathy and thickening of ligamentum flavum. No spinalcanal or neuroforaminal stenosis. L5-S1: Diffuse disc bulge, facet arthropathy, and thickening of ligamentumflavum. No spinal canal stenosis. Mild left neuroforaminal stenosis. IMPRESSION: Multilevel facet predominant degenerative changes with joint effusions atL3-S1. This may reflect an axial pain generator. Mild left neuroforaminal stenosis at L5-S1. Ramón Velazquez MD IMG MR XSPECIALTY Final Resu lt documented in this encounter Visit Diagnoses Diagnosis Low back pain, unspecified back pain laterality, unspecified chronicity, unspecified whether sciatica present- Primary Left leg pain Pain in soft tissues of limb Low back pain, unspecified back pain laterality, unspecified chronicity, unspecified whether sciatica present Left leg pain Pain in soft tissues of limb documented in this encounter Care Teams Legal Director Relationship Specialty Start Date End Date Bipin Colorado MD [email or web address] PCP - General 07/28/17 04/15/23 Junie Zabala MD [address] [place] [phone] [email or web address] PCP - General Family Medicine 04/16/23 documented as of this encounter Additional Source Comments The information contained in this document represents components of the legal health record. It is not the complete legal health record.[facility]
--- OUTSIDE RECORDS SUMMARY | 2025-05-10 14:19 | XMS_ITS | Encounter Summary ---
Author Organization [facility] Address [address] [facility] [address] [place] [phone] Phone Care Team Providers Care Merchandise Presentation Manager Name Role Phone Bipin Colorado MD Primary Care Provider [phone] Junie Zabala MD Primary Care Provider [phone] Encounter Details Date Type Department Care Team (Late st Contact Info) Description 03/27/2021 Procedure Pass [facility]oscopy Admitting Dept Virtual Department [address] [place] [address] Social History Tobacco Use Types Packs/Day Years Used Date Smoking Tobacco: Former Smokeless Tobacco: Never Comments:Smoked for 1 year i n college 20 years ago Alcohol Use Standard Drinks/Week Comments No 0 (1 standard drink = 0.6 oz pur e alcohol) Comments No Sex and Gender Information Value [...] on file documented as of this encounter Visit Diagnoses Not on filedocumented in this encounter Additional Health Concerns Infection Onset Date Last Indicated Resolved Time CoV-Exposed Comment:Recent close contact documented in the COVID-19 PCR/PRO order 03/14/2021 03/14/2021 03/29/2021 1:23 AM E DT documented as of this encounter Care Teams Merchandise Presentation Manager Relationship Specialty Start Date End Date Bipin Colorado MD [email or web address] PCP - General 07/28/17 04/15/23 Junie Zabala MD [address] [place] [phone] [email or web address] PCP - General Family Medicine 04/16/23 documented as of this encounter Additional Source Comments The information contained in this document represents components of the legal health record. It is not the complete legal health record.[facility]
--- OUTSIDE RECORDS SUMMARY | 2025-05-10 14:19 | XMS_ITS | Encounter Summary ---
Author Organization [facility] Address [address] [facility] [address] [place] [address] Phone Care Team Providers Care Hydroelectric Plant Mechanical Engineer Name Role Phone Junie Zabala MD Primary Care Provider [phone] Encounter Details Date Type Department Care Team (Late st Contact Info) Description 11/27/2023 Procedure Pass [facility], [address] [address] Social History Tobacco Use Types Packs/Day Years [...] Diagnoses Not on filedocumented in this encounter Care Teams Hydroelectric Plant Mechanical Engineer Relationship Specialty Start Date End Date Junie Zabala MD [address] [place] [phone] [email or web address] PCP - General Family Medicine 04/16/23 documented as of this encounter Additional Source Comments The information contained in this document represents components of the legal health record. It is not the complete legal health record.[facility]
--- OUTSIDE RECORDS SUMMARY | 2025-05-10 14:19 | XMS_ITS | Encounter Summary ---
Author Organization [facility] Address [address] [place] [facility] [address] [place] [address] Phone Care Team Providers Care Quick Sketch Artist Name Role Phone Bipin Colorado MD Primary Care Provider [phone] Junie Zabala MD Primary Care Provider [phone] Encounter Details Date Type Department Care Team (Late st Contact Info) Description 01/19/2021 Procedure Pass [facility], Ct Scan - [facility] [address] [place] [address] Social History Tobacco Use Types Packs/Day Years [...] on file documented as of this encounter Functional Status * Calculated C-SSRS Risk Score (Lifetime/Recent) Answer Date of Assessment Author No Risk Indicated 01/19/2021 4:31 PM EDT Brady De Los Santos, TAB * [place] Suicide Severity Rating Scale (Screener/Recent Self-Report) Question Answer Date of Assessment Author 1. Wish to be (Past 1 Month) No 01/19/2021 4:31 PM EDT Brady Garcia, TAB 2. Non-Specific Active Suicidal Thoughts (Past 1 Month) No 01/19/2021 4:31 PM EDT Brady Garcia, TAB 6. Suicidal Behavior (Lifetime) No 01/19/2021 4:31 PM EDT Brady Garcia, TAB documented as of this encounter Plan of Treatment Not on file documented as of this encounter Visit Diagnoses Not on filedocumented in this encounter Additional Health Concerns Infection Onset Date Last Indicated Resolved Time CoV-Exposed Comment:Recent close contact documented in the COVID-19 PCR/PRO order 03/14/2021 03/14/2021 03/29/2021 1:23 AM E DT documented as of this encounter Care Teams Quick Sketch Artist Relationship Specialty Start Date End Date Bipin Colorado MD PCP - General 07/28/17 04/15/23 Junie Zabala MD [address] [place] [phone] [email or web address] PCP - General Family Medicine 04/16/23 documented as of this encounter Additional Source Comments The information contained in this document represents components of the legal health record. It is not the complete legal health record.[facility]
--- OUTSIDE RECORDS SUMMARY | 2025-05-10 14:19 | XMS_ITS | Encounter Summary ---
Author Organization [facility] Address [address] [employer] [facility] [address] [place] [address] Phone Care Team Providers Care Intelligence Applications Name Role Phone Bipin Colorado MD Primary Care Provider [phone] Junie Zabala MD Primary Care Provider [phone] Encounter Details Date Type Department Care Team (Latest Contact Info) Description 10/26/2017 Transcribe Orders [facility] [address] [place] [address] Vladislav Santos MD [address] [place] [address] [email or web address] Depressed affect (Primary Dx) Social History Tobacco Use Types Packs/Day Years Used Date Smoking Tobacco: Never Assessed Comments Unknown Sex and Gender Information Value Date Recorded Sex Assigned at Not on file Legal Sex Female 9:30 PM EDT Gender Identity Female 03/22/2019 8:47 AM EDT Sexual Orientation Not on file documented as of this encounter Plan of Treatment Not on file documented as of this encounter Results * (ABNORMAL) LAMOTRIGINE LEVEL (10/26/2017 8:17 AM EDT) LAMOTRIGINE 1.6(L) 2.5 - 15.0 mcg/mL [facility] [address] Comment: (NOTE) ADDITIONAL INFORMATION This test was developed and its performance characteristics determined by [facility] in a manner consistent with CLIA requirements. This test has not been cleared or approved by the U.S. Food and Drug Administration. Blood 10/26/2017 8:17 AM EDT 10/26/2017 8:23 AM EDT us Vladislav Santos MD LAB BLOOD ORDERABLES F inal Result [facility] [address] [place] [address] documented in this encounter Visit Diagnoses Diagnosis Depressed affect- Primary documented in this encounter Additional Health Concerns Infection Onset Date Last Indicated Resolved Time CoV-Exposed Comment:Recent close contact documented in the COVID-19 PCR/PRO order 03/14/2021 03/14/2021 03/29/2021 1:23 AM E DT documented as of this encounter Care Teams Intelligence Applications Relationship Specialty Start Date End Date Bipin Colorado MD [email or web address] PCP - General 07/28/17 04/15/23 Junie Zabala MD [address] [place] [phone] [email or web address] PCP - General Family Medicine 04/16/23 documented as of this encounter Additional Source Comments The information contained in this document represents components of the legal health record. It is not the complete legal health record.[facility]
--- OUTSIDE RECORDS SUMMARY | 2025-05-10 14:20 | XMS_ITS | Encounter Summary ---
Author Organization [facility] Address [address] [address] Phone Care Team Providers Care Experimental Display Builder Name Role Phone Bipin Colorado MD Primary Care Provider [phone] Junie Zabala MD Primary Care Provider [phone] Reason for Referral * MRI/CAT Scan - Closed Specialty Diagnoses / Procedures Referred By Igor sauer Referred To Contact Radiology Diagnoses Atypical cluster headache Procedures MRI Brain Ramón Velazquez MD Phone: tel: fax: [email or web address] Referral ID Status Reason Start Date Expiration Date Visits Re quested Visits Authorized [id number] Closed 04/10/2020 04/10/2021 1 1 Encounter Details Date Type Department Care Team (Latest Contact Info) Description 04/10/2020 Transcribe Orders Virtual Department [address] [place] [address] Ramón Velazquez MD [address] [place] [address], [address] [place] [address] [email or web address] Atypical cluster headache (Primary Dx) Social History Tobacco Use Types Packs/Day Years Used Date Smoking Tobacco: Never Smokeless Tobacco: Never Alcohol Use Standard Drinks/Week Comments No 0 [...] as of this encounter Results * MRI BRAIN WITHOUT CONTRAST (04/22/2020 7:56 AM EDT) Anatomical Region Laterality Modality Head Magnetic Resonan ce 04/22/2020 8:07 AM EDT Impressions 04/22/2020 8:16 AM EDT 1. No acute intracranial abnormality, mass, or hydrocephalus. 2. Minimal nonspecific white matter changes, which can be seen with chronic headaches (among other etiologies). Narrative 04/22/2020 8:16 AM EDT TECHNIQUE: MRI BRAIN WITHOUT CONTRAST COMPARISON: CT head 02/19/2009; MR brain 12/15/2004. HISTORY: As per header. FINDINGS: There is no evidence of intracranial mass, hemorrhage or acute infarction. There is minimal nonspecific periventricular and scattered subcortical white matter T2-FLAIR hyperintense foci. The ventricles, sulci and cisterns are within normal limits in size and configuration. The flow voids of the major intracranial vessels appear intact. There is trace scattered mucosal thickening of the paranasal sinuses. There is minimal fluid intensity signal within the mastoid air cells bilaterally. The bones and extracranial soft tissues are otherwise unremarkable. Procedure Note Santiago Hughes MD, PhD - 04/22/2020 TECHNIQUE: MRI BRAIN WITHOUT CONTRAST COMPARISON: CT head 02/19/2009; MR brain 12/15/2004. HISTORY: As per header. FINDINGS: There is no evidence of intracranial mass, hemorrhage or acuteinfarction. There is minimal nonspecific periventricular and scattered subcorticalwhite matter T2-FLAIR hyperintense foci. The ventricles, sulci and cisterns are within normal limits in size andconfiguration. The flow voids of the major intracranial vessels appear intact. There is trace scattered mucosal thickening of the paranasal sinuses. There is minimal fluid intensity signal within the mastoid air cellsbilaterally. The bones and extracranial soft tissues are otherwise unremarkable. IMPRESSION: 1. No acute intracranial abnormality, mass, or hydrocephalus. 2. Minimal nonspecific white matter changes, which can be seen withchronic headaches (among other etiologies). us Ramón Velazquez MD IMG MR HEAD/NECK Final Resul t documented in this encounter Visit Diagnoses Diagnosis Atypical cluster headache- Primary Cluster headache syndrome, unspecified Atypical cluster headache Cluster headache syndrome, unspecified documented in this encounter Additional Health Concerns Infection Onset Date Last Indicated Resolved Time CoV-Exposed Comment:Recent close contact documented in the COVID-19 PCR/PRO order 03/14/2021 03/14/2021 03/29/2021 1:23 AM E DT documented as of this encounter Care Teams Experimental Display Builder Relationship Specialty Start Date End Date Bipin Colorado MD PCP - General 07/28/17 04/15/23 Junie Zabala MD [address] [place] [phone] [email or web address] PCP - General Family Medicine 04/16/23 documented as of this encounter Additional Source Comments The information contained in this document represents components of the legal health record. It is not the complete legal health record.[facility]
--- OUTSIDE RECORDS SUMMARY | 2025-05-10 14:20 | XMS_ITS | Encounter Summary ---
Author Organization [facility] Address [address] [facility] [address] [place] [address] Phone Care Team Providers Care Balancer Name Role Phone Bipin Colorado MD Primary Care Provider [phone] Junie Zabala MD Primary Care Provider [phone] Encounter Details Date Type Department Care Team (Late st Contact Info) Description 04/10/2020 Procedure Pass [facility], [facility] [address] [place] [address] Social History Tobacco Use Types Packs/Day Years [...] documented as of this encounter Care Teams Balancer Relationship Specialty Start Date End Date Bipin Colorado MD [email or web address] PCP - General 07/28/17 04/15/23 Junie Zabala MD [address] [place] [phone] [email or web address] PCP - General Family Medicine 04/16/23 documented as of this encounter Additional Source Comments The information contained in this document represents components of the legal health record. It is not the complete legal health record.[facility]
--- OUTSIDE RECORDS SUMMARY | 2025-05-10 14:20 | XMS_ITS | Encounter Summary ---
Author Organization [facility] Address [address] [place] [address] Phone Care Team Providers Care Director Business Development Name Role Phone Bipin Colorado MD Primary Care Provider [phone] Junie Zabala MD Primary Care Provider [phone] Encounter Details Date Type Department Care Team (Late st Contact Info) Description 03/09/2023 Procedure Pass [facility], [facility] [address] [place] [address] Social History Tobacco Use Types Packs/Day Years [...] on filedocumented in this encounter Care Teams Director Business Development Relationship Specialty Start Date End Date Bipin Colorado MD [email or web address] PCP - General 07/28/17 04/15/23 Junie Zabala MD [address] [place] [phone] [email or web address] PCP - General Family Medicine 04/16/23 documented as of this encounter Additional Source Comments The information contained in this document represents components of the legal health record. It is not the complete legal health record.[facility]
--- OUTSIDE RECORDS SUMMARY | 2025-05-10 14:21 | XMS_ITS | Encounter Summary ---
Author Organization [facility] Address [address] [place] [address] Phone Care Team Providers Care Mannequin Wig Maker Name Role Phone Junie Zabala MD Primary Care Provider [phone] Encounter Details Date Type Department Care Team (Late st Contact Info) Description 06/12/2024 Procedure Pass [facility], Ct Scan - [facility] [address] [place] [address] Social History Tobacco Use Types Packs/Day Years [...] on filedocumented in this encounter Care Teams Mannequin Wig Maker Relationship Specialty Start Date End Date Junie Zabala MD [address] [place] [phone] [email or web address] PCP - General Family Medicine 04/16/23 documented as of this encounter Additional Source Comments The information contained in this document represents components of the legal health record. It is not the complete legal health record.[facility]
--- OUTSIDE RECORDS SUMMARY | 2025-05-10 14:21 | XMS_ITS | Encounter Summary ---
Author Organization [facility] Address [address] [address] Phone Care Team Providers Care Computer Technology Instructor Name Role Phone Junie Zabala MD Primary Care Provider [phone] Reason for Referral * MRI/CAT Scan - Closed Specialty Diagnoses / Procedures Referred By Igor sauer Referred To Contact Radiology Diagnoses Numbness Weakness Procedures MRI Cervical Spine Ramón Velazquez MD [address] [place] [address], [address] [place] [address] Phone: tel: fax: [email or web address] Referral ID Status Reason Start Date Expiration Date Visits Re quested Visits Authorized [id number] Closed 11/27/2023 11/26/2024 1 1 Encounter Details Date Type Department Care Team (Latest Contact Info) Description 11/27/2023 Transcribe Orders Virtual Department [address] [place] [address] Ramón Velazquez MD [address] [place] [address], [address] [place] [address] [email or web address] Numbness (Primary Dx); Weakness Social History Tobacco Use Types Packs/Day Years [...] as of this encounter Results * MRI CERVICAL SPINE (NEURO) FOCUS WITHOUT CONTRAST (01/07/2024 11:55 AM EDT) Anatomical Region Laterality Modality C-spine Magnetic Resonan ce 01/09/2024 3:31 PM EDT Impressions 01/15/2024 12:59 AM EDT No significant spinal canal or neuroforaminal stenosis. Incidental note of intraforaminal course of the vertebral arteries bilaterally at C3-4 and on the left at C6-7. These potentially could cause functional compression of the nerve roots. Narrative 01/15/2024 12:59 AM EDT MRI CERVICAL SPINE (NEURO) FOCUS WITHOUT CONTRAST REQUESTED INDICATION: Outside Radiology Order; Left 5th digit numbness// Weakness// Failed physical therapy TECHNIQUE: MRI CERVICAL SPINE (NEURO) FOCUS WITHOUT CONTRAST COMPARISON: None FINDINGS: ALIGNMENT: Straightening of the cervical lordosis. No spondylolisthesis. MARROW: No compression fracture or marrow replacing lesion. DISCS: Disc heights preserved. CORD: Cord and posterior fossa within normal limits. PARASPINAL SOFT TISSUES: Borderline 1 cm right level 2 cervical lymph node. Vertebral artery flow voids preserved. Left dominant vertebral artery. FINDINGS BY LEVEL: C2-3: No spinal canal or neuroforaminal stenosis. C3-4: Mild posterior disc bulge. No spinal canal or neuroforaminal stenosis. Intraforaminal course of the vertebral arteries bilaterally. C4-5: No spinal canal or neuroforaminal stenosis. C5-6: No spinal canal or neuroforaminal stenosis. C6-7: Facet arthropathy. No spinal canal or neuroforaminal stenosis. Intraforaminal course of the left vertebral artery C7-T1: No spinal canal or neuroforaminal stenosis. Procedure Note Edmond Avila MD - 01/15/2024 MRI CERVICAL SPINE (NEURO) FOCUS WITHOUT CONTRAST REQUESTED INDICATION: Outside Radiology Order; Left 5th digit numbness//Weakness// Failed physical therapy TECHNIQUE: MRI CERVICAL SPINE (NEURO) FOCUS WITHOUT CONTRAST COMPARISON: None FINDINGS: ALIGNMENT: Straightening of the cervical lordosis. No spondylolisthesis. MARROW: No compression fracture or marrow replacing lesion. DISCS: Disc heights preserved. CORD: Cord and posterior fossa within normal limits. PARASPINAL SOFT TISSUES: Borderline 1 cm right level 2 cervical lymphnode. Vertebral artery flow voids preserved. Left dominant vertebralartery. FINDINGS BY LEVEL: C2-3: No spinal canal or neuroforaminal stenosis. C3-4: Mild posterior disc bulge. No spinal canal or neuroforaminalstenosis. Intraforaminal course of the vertebral arteries bilaterally. C4-5: No spinal canal or neuroforaminal stenosis. C5-6: No spinal canal or neuroforaminal stenosis. C6-7: Facet arthropathy. No spinal canal or neuroforaminal stenosis.Intraforaminal course of the left vertebral artery C7-T1: No spinal canal or neuroforaminal stenosis. IMPRESSION: No significant spinal canal or neuroforaminal stenosis. Incidental note of intraforaminal course of the vertebral arteriesbilaterally at C3-4 and on the left at C6-7. These potentially could causefunctional compression of the nerve roots. Ramón Velazquez MD IMG MR XSPECIALTY Final Resu lt documented in this encounter Visit Diagnoses Diagnosis Numbness- Primary Disturbance of skin sensation Weakness Other malaise and fatigue Numbness Disturbance of skin sensation Weakness Other malaise and fatigue documented in this encounter Care Teams Computer Technology Instructor Relationship Specialty Start Date End Date Junie Zabaal MD [address] [place] [phone] [email or web address] PCP - General Family Medicine 04/16/23 documented as of this encounter Additional Source Comments The information contained in this document represents components of the legal health record. It is not the complete legal health record.[facility]
--- OUTSIDE RECORDS SUMMARY | 2025-05-10 14:21 | XMS_ITS | Clinical Summary ---
Author Organization [facility] Address [address] [address] Phone Care Team Providers Care Duralumin Mechanic Name Role Phone Junie Zabala MD Primary Care Provider Allergies Active Allergy Reactions Criticality Noted Date Comments Erythromycin 04/17/2018 Sumatriptan 04/17/2018 Sulfa (Sulfonamide Antibiotics) Anaphylaxis High Medications aspirin-acetaminoph en-caffeine (EXCEDRIN MIGRAINE) 250-250-65 mg per tablet Take 2 tablets by mouth every 6 (six) hours as needed. Active ALPRAZolam (XANAX) 0.25 MG tablet Take 0.25 mg by mouth nightly at bedtime as needed for sleep. Active ondansetron (ZOFRAN-ODT) 8 MG disintegrating tablet Take 8 mg by mouth every 8 (eight) hours as needed. 9 Active QUEtiapine (SEROQUEL) 25 MG tablet 50 mg nightly at bedtime. 0 Active clonazePAM (KLONOPIN) 1 MG tablet Take 2 mg by mouth nightly at bedtime. 0 Active lamoTRIgine (LAMICTAL) 200 MG tablet Take 200 mg by mouth daily. 0 Active lisinopril (PRINIVIL,ZESTRIL) 5 MG tablet Take 5 mg by mouth daily. Active celecoxib (CELEBREX) 200 MG capsule Take 200 mg by mouth daily. Active tiZANidine (ZANAFLEX) 2 MG capsule Take 2 mg by mouth nightly at bedtime. Active topiramate (TOPAMAX) 25 MG tablet Take 25 mg by mouth 2 (two) times a day. 1 Active acetaminophen-codei ne (TYLENOL #3) 300-30 mg per tablet Take 1 tablet by mouth every 6 (six) hours as needed. 1 Active Hospital, Clinic, or Other Facility Administered Medication Ordered Dose Route Frequency Start Date End Date Status lidocaine (XYLOCAINE) 1% injection 2 mLIndications:Primar y osteoarthritis of both knees 2 mL See Adm Inst See admin instructions 06/27/2024 Active triamcinolone acetonide (KENALOG-40) 40 mg/mL injection 40 mgIndications:Primar y osteoarthritis of both knees 40 mg IM See admin instructions 06/27/2024 Active Active Problems Problem Noted Date Diagnosed Date Colitis 01/19/2021 Assessment & Plan (01/19/2021 10:44 PM EDT): -Patient presented with abdominal cramps that began yesterday evening and multiple episodes of right red blood per rectum since this morning -Closely monitor H&H, currently hemoglobin is 15.2, no hypotension -CT abdomen showed colitis of transverse colon -Patient has been started on empiric antibiotics with cefoxitin as recommended by GI -Clear liquid diet for now -Follow-up stool studies -Follow-up GI consult -Continue IV fluid hydration HTN (hypertension) 01/19/2021 Assessment & Plan (01/19/2021 10:43 PM EDT): -Blood pressures currently well controlled, continue lisinopril Anxiety 01/19/2021 Assessment & Plan (01/19/2021 10:44 PM EDT): -Patient with bipolar disorder, anxiety, panic attacks -Continue nightly Seroquel and Klonopin, she is also on as needed Xanax at bedtime Fibromyalgia 01/19/2021 Assessment & Plan (01/19/2021 10:45 PM EDT): -Patient was recently started on Celebrex 200 mg daily and tizanidine 2 mg nightly -Hold NSAIDs while patient is bleeding Uterine leiomyoma 06/13/2018 Assessment & Plan (06/13/2018 11:05 AM EST): If very enlarged or now has submucosal component, then UAE may be an option for treatment Menstrual migraine without s tatus migrainosus, not intractable 04/17/2018 Assessment & Plan (04/17/2018 2:35 PM EDT): Optoins: TA - if PCP OK with that given the menstrual migraines with visual aura due to rare cases blindness with TA, mech of action reviewed' P only OCP, may also help menstrual migraines; otherwise, Hyst only other option Menorrhagia with regular cycle 04/17/2018 Overview (06/13/2018): S/p polypectomy and Novasure 2015 CBC and TSH normal 04/2018 Assessment & Plan (07/11/2018 2:32 PM EST): SHG demonstrates no polyps but is limited by inability to insufflate the alisa uterine cavity, presumed a result of post-ablation scarring At this time, Dorothy is hoping she and her ex can arrange for him to be on vacation after a hysterectomy TLH with BS reviewed including possible surgical risks, recovery 2-4 weeks but may be longer in event of any complications, need for ex lap She will call with decision, hoping for hyst in Aug or September Assessment & Plan (06/13/2018 11:06 AM EST): Treatment options limited due to the migraine with visual sxs; will recheck the SHG, and I encouraged considering the LNG IUD; uterine cavity may not accommodate this after ablation Hysterectomy also offered, declined at this time due to childcare Encounters Date Type Department Care Team Description 03/04/2025 8:30 AM EDT Office Visit [facility] Orth[facility] & [facility] Medicine [address] [place] [id number] Claudia Rousseau MD Primary osteoarthritis of both knees (Primary Dx); Obesity (BMI 30-39.9) from Last 3 Months Family History * Patient is adopted Medical History Relation Comments No Known Problems Daughter 1 No Known Problems Daughter 2 Relation Status Comments Daughter 1 Alive Daughter 2 Alive Social History Tobacco Use Types Packs/Day Years [...] file Not on file Not on file Last Filed Vital Signs Vital Sign Reading Time Taken Comments Blood Pressure 119/87 03/27/2021 11:25 AM EDT Pulse 71 03/27/2021 11:12 AM EDT Temperature 35.8 C (96.4 F) 03/27/2021 11:12 AM EDT Respiratory Rate 16 03/27/2021 11:12 AM EDT Oxygen Saturation 98% 03/27/2021 11:20 AM EDT Inhaled Oxygen Concentration - - Weight 127 kg (280 lb) 01/01/2024 11:26 AM EDT Height 165.1 cm (5' 5 ) 01/01/2024 11:26 AM EDT Body Mass Index 46.59 01/01/2024 11:26 AM EDT Plan of Treatment Health Maintenance Due Date Last Done Comments BLOOD PRESSURE 1975 LIPID PANEL 1975 DEPRESSION SCREENING 1985 SMOKING Hx and SMOKELESS TOBACCO SCREENING 1986 HEPATITIS C SCREENING 12/13/1991 HIV ONE-TIME SCREENING (18-65 YEARS) 12/13/1991 MAMMOGRAM 2013 COLOGUARD 2018 FIT TEST 2018 FOBT 2018 SIGMOIDOSCOPY 2018 VIRTUAL COLONOSCOPY 2018 PAP SMEAR 04/17/2021 04/17/2018, 04/17/2018 PNEUMOCOCCAL VACCINES (50+ years) (1 of 1 - PCV) 12/13/2023 RSV VACCINE (1 - Risk 50-74 years 1-dose series) 12/13/2023 ZOSTER VACCINES (1 of 2) 12/13/2023 INFLUENZA VACCINE (#1) 2025 , 07/13/2023, 05/08/2021, Additional history exists COVID-19 VACCINE ( season) 2025 04/13/2024, 04/30/2023, 11/26/2022, Additional history exists CREATININE LEVEL 08/01/2025 08/01/2024, , 01/20/2021, Additional history exists POTASSIUM LEVEL 08/01/2025 08/01/2024, 12/25, 01/20/2021, Additional history exists SCREENING FOR DIABETES 08/01/2027 08/01/2024 COLONOSCOPY 03/27/2031 03/27/2021 COLORECTAL CANCER SCREENING 03/27/2031 Adult Td,Tdap Booster 11/20/2031 11/19/2021 , 05/08/2014, 09/30/2011, Additional history exists HEPATITIS A VACCINES Aged Out No long er eligible based on patient's age to complete this topic HIB VACCINES Aged Out No longer eligi ble based on patient's age to complete this topic MENINGOCOCCAL VACCINES (ACWY) Aged Out No longer eligible based on patient's age to complete this topic MENINGOCOCCAL VACCINES (B) Aged Out N o longer eligible based on patient's age to complete this topic Medical Devices Not on file Procedures Procedure Name Priority Date/Time Associated Diagnosis Comments BASIC METABOLIC PANEL Routine 08/01/2024 10:26 AM EST Secondary hypertension ENDOSCOPY, COLON 03/27/2021 9:54 AM EDT PAP TEST Routine 04/17/2018 12:00 AM EDT from Last 3 Months or Most Recently Relevant to Health Maintenance Results * Basic metabolic panel (08/01/2024 10:26 AM EST) SODIUM 141 133 - 146 mmol/L [facility] CHLORIDE 106 96 - 108 mmol/L [facility] POTASSIUM 3.6 3.3 - 5.1 mmol/L [facility] CO2 23 21 - 35 mmol/L [facility] BUN 19 6 - 19 mg/dL [facility] CREATININE 1.00 0.5 - 1.5 mg/dL [facility] GLUCOSE 83 70 - 99 mg/dL [facility] CALCIUM 9.5 8.4 - 10.3 mg/dL [facility] EGFR 69 >59 mL/min/1.7 3m2 [facility] Comment:Estimated glomerular filtration rate calculated using the CKD-EPI refit equation. ANION GAP 16 10 - 20 mmol/L [facility] Blood 08/01/2024 10:2 6 AM EST 08/01/2024 10:29 AM EST us Junie Zabala MD LAB BLOOD ORDERABLES Final Result [facility] [address] [place] [address] * ENDOSCOPY, COLON (03/27/2021 9:54 AM EDT) Narrative Transcriptions Alfonso Bonilla MD - 03/27/2021 9:54 AM EDT Patient Name: Dorothy Randolph Attending MD:: ALFONSO BONILLA MD Procedure Date: 03/27/2021 9:54 AM Date of : 1975 Age: 45 Admit Type: Outpatient Gender: Female Room: [facility] 05 Referring MD: DAXA COLORADO MD Exam Type: Colonoscopy Indications: Screening for colorectal malignant neoplasm, This is the patient's first colonoscopy Medications: Monitored Anesthesia Care Procedure: Informed consent was obtained from the patient after discussion of the indications, limitations, alternatives, benefits, and risks of the procedure. Risks specifically discussed include but are not limited to medication reactions, missed lesions, bleeding, perforation, or the need for emergentsurgery. Throughout the procedure, the patient's bloodpressure, pulse, end-tidal CO2, and oxygen saturations were monitored continuously. The Olympus adult variable colonoscope [id number] #1was introduced through the anus and advanced to the terminal ileum. The colonoscopy was performedwithout difficulty. The patient tolerated the procedurewell. The quality of the bowel preparation was good. Complications: No immediate complications. Estimated blood loss:None. Findings: The perianal and digital rectal examinations were normal. A 3 mm polyp was found in the rectum. The polyp was sessile. The polyp was removed with a cold biopsy forceps. Resection and retrieval were complete. The recto-sigmoid colon, sigmoid colon, descending colon, splenic flexure, transverse colon, hepatic flexure, ascending colon, cecum, appendicealorifice, ileocecal valve, ileum, rectum (on retroflexion) and ascending colon (on retroflexion) appeared normal. 2 plus internal hemorrhoids were noted. Impression: - One 3 mm polyp in the rectum, removed with a cold biopsy forceps. Resected and retrieved. - The recto-sigmoid colon, sigmoid colon, descending colon, splenic flexure, transverse colon, hepatic flexure, ascending colon, cecum, appendicealorifice, ileocecal valve, terminal ileum and rectum arenormal. Recommendation: - Discharge patient to home. - Resume previous diet. - Continue present medications. - Await pathology results. - Repeat colonoscopy 7 years if pathology shows adenoma, 10 years if hyperplastic. for surveillance based on pathology results. - I will send you pathology results by letter. Ifyou do not get results in 3 weeks telephone my office. ALFONSO BONILLA MD 03/27/2021 11:09:00 AM This report has been signed electronically. Number of Addenda: 0 Note Initiated On: 03/27/2021 9:54 AM Procedure Code(s): --- Professional --- 33695, Colonoscopy, flexible; with biopsy, single or multiple --- Technical --- 71596, Colonoscopy, flexible; with biopsy, single or multiple Diagnosis Code(s): --- Professional --- Z12.11, Encounter for screening for malignantneoplasm of colon K62.1, Rectal polyp --- Technical --- Z12.11, Encounter for screening for malignantneoplasm of colon K62.1, Rectal polyp CPT copyright 2018 [employer]. All rights reserved. The codes documented in this report are preliminary and upon carbon sequestration plant manager reviewmay be revised to meet current compliance requirements. Procedure Date: 03/27/2021 9:54:[address] [place] [address] Daxa Colorado MD GI PROCEDURE ORDERABLES Final Re sult * Pap Smear (04/17/2018 12:00 AM EDT) 04/17/2018 04/18/2018 9:4 1 AM EDT Narrative SEE NARRATIVE - 04/21/2018 1:06 [place] [address] Second Mate: Faye Randhawa MD [employer] PHARM[employer] TECHNICIAN Cytology Report FINAL DIAGNOSIS A. PAP SMEAR (SUREPATH) CE: SPECIMEN ADEQUACY: Satisfactory for evaluation; transformation zone present. INTERPRETATION: NEGATIVE FOR INTRAEPITHELIAL LESION OR MALIGNANCY. Electronically Signed Out By: Ruthie XAVIER(ASCP) The Pap test is a screening test primarily for squamous cancers and precursors and has associated false-negative and false-positive results. New technologies such as liquid-based preparations may decrease but will not eliminate all false-negative results. Regular sampling and follow-up of unexplained clinical signs and symptoms are recommended to minimize false negative results. PROCEDURES/ADDENDA HPV Testing (Requested) Ordered Date: 04/18/2018 HPV TEST Positive for human papillomavirus with the Other high risk (non- type 16 or 18) probe set (Includes 31, 33, 35, 39, 45, 51, 52, 56, 58, 59, 66, 68) by Dee cobase 4800 HR-HPV analysis. Negative for high risk human papillomavirus types 16 and 18 by Dee cobase 4800 HR-HPV analysis. Clinical correlation is advised. This HPV test was performed at [facility], [address] [place] [address]. The accuracy and precision of this test has been verified in the Cytopathology laboratory of the [facility]. This test has not been cleared or approved by the U.S. Food and Drug Administration (FDA). CLINICAL HISTORY Date of Last Menstrual Period: 04/11/18 Other Clinical Conditions: Screening Pap SPECIMEN SOURCE A: PAP SMEAR (SUREPATH) CE Patient Name: DOROTHY RANDOLPH : 1975 (Age: 42) Sex: F Institution: [facility] Location: [facility] Date of Collection: 04/17/2018 Date of Reported: 04/20/2018 12:27 Results to: Aurelia Reddy MD Aurelia Reddy MD CYTOLOGY ORDERABLES Edited Resul t - Final SEE NARRATIVE from Last 3 Months or Most Recently Relevant to Health Maintenance Insurance [place]ICARE PART [place] [facility] [place] MEDICARE PART A & B HEALTH MEDICARE PART A & B MEDICARE PART [place] & [place] & [facility] & B [facility] Advance Directives For more information, please contact: [phone] (9AM - 5PM [facility], Tuesday-Tuesday) * Full Code (Latest Code Status on File) Date Activated Date Inactivated Comments 01/19/2021 10:57 PM Question Answer Comments Code Status Confirmed With: Patient Care Teams Duralumin Mechanic Relationship Specialty Start Date End Date Junie Zabala MD [address] [place] [id number] [email or web address] PCP - General Family Medicine 04/16/23 Additional Source Comments The information contained in this document represents components of the legal health record. It is not the complete legal health record.[facility]
== END 2025-05-10 13:13 | disposition home or self-care (01) ==
LOC: HO.HNS 11:34
PROVIDERS: PCP Family Medicine; Visit Provider Physician Assistant
DX: M54.50 Low back pain, unspecified (principal); G89.29 Other chronic pain
CPT/HCPCS: 99213

== ENCOUNTER → 2025-05-10 11:33 | Outpatient (BNVA) | payer MEDICARE, MEDICAID, SELFPAY | PROVIDERS: PCP Family Medicine; Visit Provider Physician Assistant | DX: M54.50 Low back pain, unspecified (principal); G89.29 Other chronic pain | CPT/HCPCS: 99212 ==